=== PATIENT | female | born 1935 | race Caucasian/White ===

== ENCOUNTER 2018-07-02 12:47 | Outpatient (CLI) | payer MEDICARE ==
--- NOTE | 2018-07-02 14:19 | MMO ---
BILATERAL SCREENING MAMMOGRAM: HISTORY: An 82-year-old female. Routine screening mammography. COMPARISON: 06/18/2007, 05/23/2016, 05/17/2015, 05/13/2014 TECHNIQUE: CC and MLO views of both breasts were submitted for interpretation. This patient's mammogram is revi ewed with the assistance of computer aided detection. FINDINGS: The breasts are composed of scattered fibroglandular tissue. Bilaterally, no suspicious dominant mas s, architectural distortion, or suspicious calcification. Punctate benign appearing calcification in the right breast. IMPRESSION: BI-RADS Category 2-Benign findings. RECOMMENDATIONS: Annual mammogram. POS: [facility]
== END 2018-07-02 12:48 | disposition home or self-care (01) ==
LOC: SCSMAMMO 12:47
PROVIDERS: ATTEND Family Medicine
DX: Z12.31 Encounter for screening mammogram for malignant neoplasm of breast (principal)
CPT/HCPCS: 77067

== ENCOUNTER 2018-09-23 08:48 | Emergency (ER) | payer MEDICARE ==
--- NOTE | 2018-09-23 10:03 | RAD ---
2 VIEW CHEST: Date: 09/23/18 INDICATION: Injury with chest pain. FINDINGS: Lungs are hyperinflated. Cardiac silhouette is mildly enlarged. No vascular congestion. No evidence o f effusion or pneumothorax. IMPRESSION: COPD. POS: [facility]
--- NOTE | 2018-09-23 10:04 | RAD ---
TWO VIEWS LEFT LEG: Indication: Injury with pain. FINDINGS: There is a left knee prosthesis. No acute fracture of the tibia or fibula. There is chronic appearing heterotopic density at the lateral malleolus and chronic appearing irregularity of the distal aspect of the medial malleolus. Soft tissue calcifications are seen within the proximal and distal left leg posteriorly. Incidental note of partially imaged hardware of the left first ray. IMPRESSION: No acute osseous abnormality of the left leg. POS: [facility]
== END 2018-09-23 10:08 | disposition home or self-care (01) ==
LOC: SCSER 08:48
DX: S80.12XA Contusion of left lower leg, initial encounter (principal); S20.212A Contusion of left front wall of thorax, initial encounter; S20.211A Contusion of right front wall of thorax, initial encounter; F41.9 Anxiety disorder, unspecified; V43.52XA Car driver injured in collision with other type car in traffic accident, initial encounter
CPT/HCPCS: 71046

== ENCOUNTER 2021-09-25 13:12 | Outpatient (CLI) | payer MEDICARE, OTHER ==
[2021-09-26 11:03] LABS: SARS-CoV-2 PCR by NAA Not Detected (NotDetected)
== END 2021-09-25 13:13 | disposition home or self-care (01) ==
LOC: LABBT 13:12
PROVIDERS: ATTEND Ophthalmology Retina Specialist
DX: Z01.812 Encounter for preprocedural laboratory examination (principal); H43.391 Other vitreous opacities, right eye; Z20.822 Contact with and (suspected) exposure to COVID-19
CPT/HCPCS: U0003; U0005

== ENCOUNTER 2021-09-28 06:36 | Day surgery (SDC) | payer MEDICARE, OTHER ==
[2021-09-26 15:06] VITALS: BMI 23.1
[~2021-09-28 06:36] MED LIST: EPINEPHrine 0.3 MG in Ophthalmic Irrigation Solution 500 ML IRR SCH
[2021-09-28] MEDS ORDERED: Cyclopentolate 1% Opth Drop 2 ML BOT ONE (07:09)
[2021-09-28] MEDS ORDERED: Phenylephrine 2.5% Ophth Soln 5 ML BOT ONE (07:10)
[2021-09-28] MEDS ORDERED: Lidocaine 4% PF 5 ML AMP ONE (07:56)
[2021-09-28] MEDS ORDERED: Triamcinolone 40 MG/ML VIAL ONE (07:56)
[2021-09-28] MEDS ORDERED: Maxitrol 0.1% Opth Oint 3.5 GM TUBE ONE (07:56)
[2021-09-28] MEDS ORDERED: Bupivacaine PF 0.75% SDV 10 ML ONE (07:56)
[2021-09-28] MEDS ORDERED: CEFAZOLIN 1 GM VIAL ONE (07:56)
[2021-09-28] MEDS ORDERED: PROPOFOL 200 MG/20 ML VIAL ONE (07:56)
[2021-09-28] MEDS ORDERED: Lidocaine 1% PF 5 ML VIAL ONE (07:56)
== END 2021-09-28 08:55 | disposition home or self-care (01) ==
LOC: SDC 06:36
PROVIDERS: ATTEND Ophthalmology Retina Specialist
PROC: 08T43ZZ Resection of Right Vitreous, Percutaneous Approach (ICD-10-PCS; principal; 2021-09-28)
PROC: 08NE3ZZ Release Right Retina, Percutaneous Approach (ICD-10-PCS; 2021-09-28)
DX: H43.391 Other vitreous opacities, right eye (principal); K21.9 Gastro-esophageal reflux disease without esophagitis; Z79.899 Other long term (current) drug therapy; Z88.5 Allergy status to narcotic agent
CPT/HCPCS: J0171; J0690; J2704; J3301; J3490

== ENCOUNTER 2021-11-27 07:43 | Outpatient (CLI) | payer MEDICARE ==
[2021-11-27 20:42] LABS: SARS-CoV-2 PCR by NAA Not Detected (NotDetected)
== END 2021-11-27 07:44 | disposition home or self-care (01) ==
LOC: LABBT 07:43
PROVIDERS: ATTEND Family Medicine
DX: Z01.812 Encounter for preprocedural laboratory examination (principal); Z20.822 Contact with and (suspected) exposure to COVID-19
CPT/HCPCS: U0003; U0005

== ENCOUNTER 2021-11-30 06:09 | Day surgery (SDC) | payer MEDICARE ==
[2021-11-27 14:22] VITALS: BMI 23.2
[2021-11-30] MEDS ORDERED: Phenylephrine 2.5% Ophth Soln 5 ML BOT ONE (06:29)
[2021-11-30] MEDS ORDERED: Cyclopentolate 1% Opth Drop 2 ML BOT ONE (06:29)
[2021-11-30] MEDS ORDERED: Midazolam HCl 2 mg/2 ml Vial ONE (06:50)
[2021-11-30] MEDS ORDERED: PROPOFOL 20 ML ONE (06:50)
[2021-11-30] MEDS ORDERED: Fentanyl 100 MCG/2 ML VIAL ONE (06:50)
[2021-11-30] MEDS ORDERED: Lidocaine 4% PF 5 ML AMP ONE (07:11)
[2021-11-30] MEDS ORDERED: Bupivacaine PF 0.75% SDV 10 ML ONE (07:11)
[2021-11-30] MEDS ORDERED: Triamcinolone 40 MG/ML VIAL ONE (07:11)
[2021-11-30] MEDS ORDERED: Maxitrol 0.1% Opth Oint 3.5 GM TUBE ONE (07:11)
[2021-11-30] MEDS ORDERED: Lidocaine 1% PF 5 ML VIAL ONE (07:11)
[2021-11-30] MEDS ORDERED: Naloxone HCl 0.4 mg/ml Vial ONE ×2 (07:11→08:12)
[2021-11-30] MEDS ORDERED: PROPOFOL 200 MG/20 ML VIAL ONE (07:11)
[2021-11-30] MEDS ORDERED: CEFAZOLIN 1 GM VIAL ONE (07:11)
[2021-11-30] MEDS ORDERED: EPINEPHrine 0.3 MG in Ophthalmic Irrigation Solution 500 ML IRR SCH (10:45)
== END 2021-11-30 08:45 | disposition home or self-care (01) ==
LOC: SDC 06:09
PROVIDERS: ATTEND Ophthalmology Retina Specialist
PROC: 08T53ZZ Resection of Left Vitreous, Percutaneous Approach (ICD-10-PCS; principal; 2021-11-30)
PROC: 08NF3ZZ Release Left Retina, Percutaneous Approach (ICD-10-PCS; 2021-11-30)
PROC: 08J1XZZ Inspection of Left Eye, External Approach (ICD-10-PCS; 2021-11-30)
DX: H43.312 Vitreous membranes and strands, left eye (principal); K21.9 Gastro-esophageal reflux disease without esophagitis; Z79.899 Other long term (current) drug therapy; Z88.5 Allergy status to narcotic agent
CPT/HCPCS: J0171; J0690; J2250; J2310; J2704; J3010; J3301; J3490

== ENCOUNTER 2023-07-08 11:11 | Outpatient (CLI) | payer MEDICARE | END 2023-07-08 11:12 | disposition home or self-care (01) | LOC: SCSRAD 11:11 | PROVIDERS: ATTEND Nurse Practitioner Family | DX: R07.81 Pleurodynia (principal) ==

== ENCOUNTER 2025-07-15 09:39 | Outpatient (CLI) | payer OTHER | END 2025-07-15 09:40 | disposition home or self-care (01) | LOC: SCSMRI 09:39 | PROVIDERS: ATTEND Orthopaedic Surgery | DX: S46.012A Strain of muscle(s) and tendon(s) of the rotator cuff of left shoulder, initial encounter (principal); M19.012 Primary osteoarthritis, left shoulder; M25.412 Effusion, left shoulder; M75.92 Shoulder lesion, unspecified, left shoulder; M62.512 Muscle wasting and atrophy, not elsewhere classified, left shoulder ==